=== PATIENT | male | born 1980 | race Caucasian/White ===

== ENCOUNTER 2021-01-09 14:16 | Emergency (ER) | payer SELFPAY ==
[2021-01-09 14:26] VITALS: BP 102/69; PULSE 72; TEMP 98; BMI 25.7
[2021-01-09] MEDS ORDERED: DIPHTH,PERTUSS(ACELL),TET 0.5 ML DISP.SYRIN IM ONE ×2 (14:58→15:06)
[2021-01-09] MEDS ORDERED: IBUPROFEN 400 MG TABLET (FP) PO ONE ×2 (14:58→15:06)
== END 2021-01-09 16:28 | disposition home or self-care (01) ==
LOC: JERFT 14:16
PROC: 3E0234Z Introduction of Serum, Toxoid and Vaccine into Muscle, Percutaneous Approach (ICD-10-PCS; principal; 2021-01-09)
DX: S71.112A Laceration without foreign body, left thigh, initial encounter (principal); W29.3XXA Contact with powered garden and outdoor hand tools and machinery, initial encounter; Y93.H2 Activity, gardening and landscaping
CPT/HCPCS: 90715; 99284-25